=== PATIENT | male | born 1985 | race African-American/Black ===

== ENCOUNTER 2019-02-01 05:28 | Inpatient (IN) | payer BC ==
[2019-02-01] VITALS (11 sets, daily range): BP systolic 119–188; BP diastolic 70–101
[~2019-02-01] VITALS: Ht 182.9 cm; Wt 119.7 kg
[2019-02-01] MEDS ORDERED: KETAMINE HCL 500 MG/10 ML VIAL. ONE (05:37)
--- NOTE | 2019-02-01 06:07 | PHYS DOC ---
Adult General Chief Complaint Chief Complaint: ANKLE PROBLEM HPI HPI Patient is a 34 year old [f__sex] who presents with [] (BORIS ARRINGTON DO) Review of Systems Review of Systems Constitutional: Denies fever or chills [] Eyes: Denies change in visual acuity, redness, or eye pain [] HENT: Denies nasal congestion or sore throat [] Respiratory: Denies cough or shortness of breath [] Cardiovascular: No additional information not addressed in HPI [] GI: Denies abdominal pain, nausea, vomiting, bloody stools or diarrhea [] : Denies dysuria or hematuria [] Musculoskeletal: Denies back pain or joint pain [] Integument: Denies rash or skin lesions [] Neurologic: Denies headache, focal weakness or sensory changes [] Endocrine: Denies polyuria or polydipsia [] All other systems were reviewed and found to be within normal limits, except as documented in this note. (BORIS ARRINGTON DO) Current Medications Current Medications Current Medications Medications (Trade) Dose Ordered Sig/Erik Start Time Stop Time Status Last Admin Dose Admin Ketamine HCl (Ketamine) 130 mg 1X ONCE 02/01/19 05:45 02/01/19 05:46 UNV Sodium Chloride 1,000 ml @ 1,000 mls/hr 1X ONCE 02/01/19 05:45 02/01/19 06:44 UNV (BORIS ARRINGTON DO) Current Medications Current Medications Medications (Trade) Dose Ordered Sig/Erik Start Time Stop Time Status Last Admin Dose Admin Hydromorphone HCl (Dilaudid) 2 mg 1X ONCE 02/01/19 07:00 02/01/19 07:01 DC 02/01/19 06:46 2 MG Ketamine HCl (Ketamine) 130 mg 1X ONCE 02/01/19 07:00 02/01/19 07:01 DC Ondansetron HCl (Zofran) 4 mg 1X ONCE 02/01/19 07:00 02/01/19 07:01 DC 02/01/19 06:45 4 MG Sodium Chloride 1,000 ml @ 1,000 mls/hr 1X ONCE 02/01/19 07:00 02/01/19 07:59 02/01/19 06:47 1,000 MLS/HR (CECILLE FARRELL MD) Allergies Allergies Allergies Coded Allergies Type Severity Reaction Last Updated Verified No Known Drug Allergies 02/01/19 No (CECILLE FARRELL MD) Physical Exam Physical Exam Constitutional: Well developed, well nourished, no acute distress, non-toxic appearance. [] HENT: Normocephalic, atraumatic, bilateral external ears normal, oropharynx moist, no oral exudates, nose normal. [] Eyes: PERRLA, EOMI, conjunctiva normal, no discharge. [] Neck: Normal range of motion, no tenderness, supple, no stridor. [] Cardiovascular:Heart rate regular rhythm, no murmur [] Lungs & Thorax: Bilateral breath sounds clear to auscultation [] Abdomen: Bowel sounds normal, soft, no tenderness, no masses, no pulsatile masses. [] Skin: Warm, dry, no erythema, no rash. [] Back: No tenderness, no CVA tenderness. [] Extremities: No tenderness, no cyanosis, no clubbing, ROM intact, no edema. [] Neurologic: Alert and oriented X 3, normal motor function, normal sensory function, no focal deficits noted. [] Psychologic: Affect normal, judgement normal, mood normal. [] (BORIS ARRINGTON DO) Current Patient Data Vital Signs Vital Signs Date Time Temp Pulse Resp B/P (MAP) Pulse Ox O2 Delivery O2 Flow Rate FiO2 02/01/19 06:46 20 Room Air 02/01/19 05:53 98.6 73 142/70 2.0 99.7 118 15.0 111 15.0 02/01/19 05:30 99 (CECILLE FARRELL MD) EKG EKG [] (BORIS ARRINGTON DO) Radiology/Procedures Radiology/Procedures [] (BORIS ARRINGTON DO) Radiology/Procedures [address] [place], [place] [id number] IMAGING REPORT Signed PATIENT: CARMINA ARMENTA ACCOUNT: [id number] : 1985 LOCATION: ER AGE: 34 SEX: M EXAM STATUS: DEP ER ORD. PHYSICIAN: BORIS ARRINGTON DO REASON: trauma PROCEDURE: ANKLE RIGHT 3V Right ankle x-rays 3 views HISTORY: Right ankle trauma. FINDINGS: There is placement of external casting. There is acute traumatic comminuted fracture of the tibial plafond and medial malleolus with distraction of the tibial plafond lateral which is also dislocated from the talus. Fracture involves the articular cortex of the medial tibial plafond. On the lateral view only there is a angular bone-like density projecting across the calcaneus tuberosity raising the possibility of a fracture fragment of the calcaneus. Os peroneus. IMPRESSION: Fracture and dislocation as described above. Electronically signed by: Radha Lombardi MD (02/01/2019 7:28 AM) [facility] DICTATED and SIGNED BY: RADHA LOMBARDI MD DATE: 02/01/19727 (CECILLE FARRELL MD) Course & Med Decision Making Course & Med Decision Making Pertinent Labs and Imaging studies reviewed. (See chart for details) [Procedure: Procedural sedation/fracture dislocation reduction right ankle Patient presented with traumatic right ankle injury. On initial evaluation the ankle was cool and dusky with a diminished dorsalis pedis pulse and no palpable posterior tibial pulse. An IV was placed, consent was appropriately obtained and the patient was given 1 mg/kg of ketamine. There was significant difficulty reducing the ankle even after excellent sedation. I felt as if the ankle reduced and then the minute traction was relaxed the ankle dislocated again. The patient was in much better anatomical position and splint was applied. After splinting Refill was less than [address] Walker to fully evaluate the patient after his ankle was reduced. Prior to any pain medication the patient did state that he had no other injuries and no other pain.] (BORIS ARRINGTON DO) Course & Med Decision Making Evaluation of patient in ER showed 33-year-old male patient who had injury to right ankle and reduction of dislocation by Dr. Arrington prior to my arrival. Postreduction x-ray showed a comminuted fracture of distal tibia with dislocation. Splint was already was placed with good cap refill. On-call orthopedic physician Dr Brian was consulted at 700 and plans to take patient to operating room for surgical treatment. Patient had blood pressure of 180/100s and stated he was diagnosed with hypertension but doesn't take blood pressure medication. Patient requiring admission for further evaluation and treatment. Discussed with Dr. Diego who is in agreement with admission. Discussed findings and plan with patient and family, who acknowledge understanding and agreement. (CECILLE FARRELL MD) Dragon Disclaimer Dragon Disclaimer This electronic medical record was generated, in whole or in part, using a voice recognition dictation system. (BORIS ARRINGTON DO) Departure Departure Impression: Primary Impression: Closed fracture dislocation of right ankle joint Additional Impression: Uncontrolled hypertension Disposition: ADMITTED INPATIENT (At 0707) Admitting Physician: MARIPOSA (Dr Diego accepted the admission at 0706.) (CECILLE FARRELL MD) Condition: IMPROVED Referrals: ISRRAEL POWERS (PCP) Problem Qualifiers Primary Impression: Closed fracture dislocation of right ankle joint Encounter type: initial encounter Qualified Codes: S82.891A - Other fracture of right lower leg, initial encounter for closed fracture BORIS ARRINGTON DO Feb 01, 2019 06:07 CECILLE FARRELL MD Feb 01, 2019 07:07
[2019-02-01] MEDS ORDERED: HYDROmorphone 2 MG/ML VIAL IV ONE (07:00)
[2019-02-01] MEDS ORDERED: IV NORMAL SALINE 1000ML BAG 1,000 ML IV ONE (07:00)
[2019-02-01] MEDS ORDERED: KETAMINE HCL IN NACL, ISO-OSM 50 MG/5 ML SYRINGE IV ONE (07:00)
[2019-02-01] MEDS ORDERED: ONDANSETRON PF 4 MG/2 ML VIAL. IV ONE (07:00)
[2019-02-01] MEDS: IV NORMAL SALINE 1000ML BAG 1,000 ML IV SCH ×4 (07:08→20:28)
[2019-02-01 07:31] LABS: BASO # 0.1 x10^3/uL (0.0-0.2); BASO % 0 % (0-3); EOS # 0.1 x10^3/uL (0.0-0.7); EOS % 1 % (0-3); HEMATOCRIT 44.2 % (39.0-53.0); LYMPH # 2.3 x10^3/uL (1.0-4.8); LYMPH % 11 % (24-48); MEAN CORPUSCULAR HEMOGLOBIN 31 pg (25-35); MEAN CORPUSCULAR HGB CONC 34 g/dL (31-37); MEAN CORPUSCULAR VOLUME 93 fL (79-100); MONO # 1.2 x10^3/uL (0.0-1.1); MONO % 6 % (0-9); NEUT # 16.7 x10^3uL (1.8-7.7); NEUT % 82 % (31-73); PLATELET COUNT 274 x10^3/uL (140-400); RED BLOOD COUNT 4.77 x10^6/uL (4.30-5.70); WHITE BLOOD COUNT 20.4 x10^3/uL (4.0-11.0)
--- NOTE | 2019-02-01 07:31 | RAD ---
Right ankle x-rays 3 views HISTORY: Right ankle trauma. FINDINGS: There is placement of external casting. There is acute traumatic comminuted fracture of the tibial plafond and medial malleolus with distraction of the tibial plafond lateral which is also dislocated from the talus. Fracture involves the articular cortex of the medial tibial plafond. On the lateral view only there is a angular bone-like density projecting across the calcaneus tuberosity raising the possibility of a fracture fragment of the calcaneus. Os peroneus. IMPRESSION: Fracture and dislocation as described above. Electronically signed by: Rudolph Lombardi MD (02/01/2019 7:28 AM) [facility]
[2019-02-01 07:45] LABS: CALCIUM 8.7 mg/dL (8.5-10.1); GFR 104.1; POTASSIUM 3.9 mmol/L (3.5-5.1)
[2019-02-01 07:50] LABS: ALBUMIN 4.1 g/dL (3.4-5.0); ALBUMIN/GLOBULIN RATIO 1.3 (1.0-1.7); TOTAL BILIRUBIN 0.7 mg/dL (0.2-1.0); TOTAL PROTEIN 7.3 g/dL (6.4-8.2)
[2019-02-01] MEDS ORDERED: fentaNYL PF VIAL 100 MCG/2 ML VIAL IV PRN ×6 (08:15→14:00)
[2019-02-01] MEDS ORDERED: ACETAMINOPHEN/CODEINE 300/30MG TABLET. PO PRN (08:15)
[2019-02-01] MEDS ORDERED: ONDANSETRON PF 4 MG/2 ML VIAL. IV PRN ×4 (08:15→14:00)
[2019-02-01] MEDS ORDERED: KETOROLAC 30 MG/ML VIAL. IV PRN (08:15)
[2019-02-01] MEDS ORDERED: ACETAMINOPHEN 500 MG TABLET PO PRN (08:15)
[2019-02-01] MEDS ORDERED: BUPIVACAINE-EPI 0.25%-1:200000 MPF 30 ML VIAL. ONE (08:32)
[2019-02-01] MEDS ORDERED: IV RINGERS,LACTATED 1000ML 1,000 ML IV SCH ×2 (08:49)
[2019-02-01] MEDS ORDERED: ceFAZolin SODIUM 3 GM in IV DEXTROSE 5% 100ML 100 ML IV PRN (09:00)
[2019-02-01] MEDS ORDERED: HYDROmorphone 2 MG/ML VIAL IV PRN ×2 (09:00)
[2019-02-01] MEDS ORDERED: PROCHLORPERAZINE 10 MG/2 ML VIAL. IV PRN ×2 (09:00)
[2019-02-01] MEDS ORDERED: MORPHINE SULFATE 2 MG/ML VIAL. IV PRN ×2 (09:00→14:00)
[2019-02-01] MEDS ORDERED: LIDOCAINE 1% PF 2 ML VIAL. ID PRN ×2 (09:00)
[2019-02-01] MEDS ORDERED: fentaNYL PF VIAL 100 MCG/2 ML VIAL ONE (09:02)
[2019-02-01] MEDS ORDERED: PROPOFOL 20 ML IV ONE (09:02)
[2019-02-01] MEDS ORDERED: LIDOCAINE 2% PF 5 ML VIAL. ONE (09:02)
[2019-02-01] MEDS ORDERED: MORPHINE SULFATE 4 MG/ML VIAL. IV PRN ×2 (10:00→14:00)
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
[2019-02-01] MEDS ORDERED: SEVOFLURANE 31 TO 60 MINUTES. IH ONE (10:28)
[2019-02-01] MEDS ORDERED: DEXAMETHASONE SOD PHOS 4 MG/ML VIAL ONE (10:28)
[2019-02-01] MEDS ORDERED: ONDANSETRON PF 4 MG/2 ML VIAL. ONE (10:40)
[2019-02-01] MEDS: MORPHINE SULFATE 2 MG/ML VIAL. IV PRN ×2 (11:21→11:34)
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
[2019-02-01] MEDS ORDERED: oxyCODONE/APAP 5/325 1 TAB TABLET PO PRN ×2 (14:00→14:15)
[2019-02-01] MEDS ORDERED: POLYETHYLENE GLYCOL 3350 17 GM PACKET. PO PRN (14:00)
[2019-02-01] MEDS ORDERED: oxyCODONE IR 5 MG TABLET PO PRN (14:00)
[2019-02-01] MEDS ORDERED: HYDROcodone/APAP 7.5/325MG 1 TAB TABLET PO PRN (14:00)
[2019-02-01] MEDS ORDERED: DEXTROSE 50% 25 GM / 50ML DISP.SYRIN. IV PRN (14:00)
[2019-02-01] MEDS: HYDROcodone/APAP 7.5/325MG 1 TAB TABLET PO PRN ×2 (16:25→22:15)
[2019-02-01] MEDS: IV 1/2 NORMAL SALINE 1,000 ML IV SCH (16:30)
[2019-02-01] MEDS: ceFAZolin SODIUM 3 GM in IV DEXTROSE 5% 100ML 100 ML IV SCH ×2 (16:35→22:14)
[2019-02-01] MEDS: KETOROLAC 30 MG/ML VIAL. IV SCH (18:00)
[2019-02-02] MEDS: KETOROLAC 30 MG/ML VIAL. IV SCH ×2 (00:33→06:30)
[2019-02-02 03:00] VITALS: BP 136/82
[2019-02-02] MEDS: IV NORMAL SALINE 1000ML BAG 1,000 ML IV SCH (03:08)
[2019-02-02] MEDS: IV 1/2 NORMAL SALINE 1,000 ML IV SCH (03:16)
[2019-02-02] MEDS: ceFAZolin SODIUM 3 GM in IV DEXTROSE 5% 100ML 100 ML IV SCH (04:00)
[2019-02-02] MEDS ORDERED: MAGNESIUM HYDROXIDE 2,400 MG/30 ML ORAL.SUSP. PO PRN (06:00)
[2019-02-02 07:00] VITALS: BP 141/75
[2019-02-02] MEDS: MULTIVITAMIN with MINERAL TABLET. PO SCH (07:57)
[2019-02-02] MEDS: ASPIRIN 325 MG TABLET PO SCH (07:57)
[2019-02-02] MEDS: SENNOSIDES/DOCUSATE 8.6/50MG TABLET. PO SCH (07:57)
[2019-02-02] MEDS: CHOLECALCIFEROL (VITAMIN D3) 1,000 UNIT TABLET PO SCH (07:57)
[2019-02-02] MEDS: HYDROcodone/APAP 7.5/325MG 1 TAB TABLET PO PRN ×3 (07:59→20:47)
--- NOTE | 2019-02-02 09:26 | PDOC ---
PROGRESS NOTES Chief Complaint Chief Complaint Right ankle fracture s/p OR and now with external fixators (02/01/19( Trauma Obesity, BMI 36 History of Present Illness History of Present Illness Has external fixators right leg-he asked me if he goes home with it He asks me when he can discharge So far eating well but has not ambulated yet post op Plan: PT OT I did tell him that most likely that he will go home with external fixators He is agreeable to rehabilitation if needed We'll consult social research assistant pending PT OT eval Vitamin D level still pending Vitals Vitals Vital Signs Date Time Temp Pulse Resp B/P (MAP) Pulse Ox O2 Delivery O2 Flow Rate FiO2 02/02/19 07:59 Room Air 02/02/19 07:00 98.0 77 22 141/75 (97) 100 98.0 02/02/19 03:00 2.0 Physical Exam General: Alert, mild distress Heart: Regular rate, Normal S1, Normal S2 Lungs: Clear Abdomen: Normal bowel sounds, Soft Extremities: Other (the ankle is splinted. He has decreased light touch sensation of the toes. The pulse is palpable and I used a Doppler to confirm triphasic dorsalis pedis pulse. Decreased active range of motion, really just a flicker of toe dorsiflexion and plantarflexion. The ankle appears malaligned and partially dislocated into varus. There is significant soft tissue swelling but no reported break in the skin.) Skin: No rashes, No breakdown, No significant lesion Review of Systems Review of Systems Right leg soreness, the rest of ROS 14 point negative Assessment and Plan Assessmemt and Plan Problems Medical Problems: (1) Closed fracture dislocation of right ankle joint Status: Acute (2) Closed fracture dislocation of right ankle joint Status: Acute (3) Uncontrolled hypertension Status: Acute Comment Review of Relevant I have reviewed the following items carl (where applicable) has been applied. Labs Laboratory Tests Test 02/01/19 07:20 White Blood Count 20.4 x10^3/uL (4.0-11.0) Red Blood Count 4.77 x10^6/uL (4.30-5.70) Hemoglobin 15.0 g/dL (13.0-17.5) Hematocrit 44.2 % (39.0-53.0) Mean Corpuscular Volume 93 fL (79-100) Mean Corpuscular Hemoglobin 31 pg (25-35) Mean Corpuscular Hemoglobin Concent 34 g/dL (31-37) Red Cell Distribution Width 13.0 % (11.5-14.5) Platelet Count 274 x10^3/uL (140-400) Neutrophils (%) (Auto) 82 % (31-73) Lymphocytes (%) (Auto) 11 % (24-48) Monocytes (%) (Auto) 6 % (0-9) Eosinophils (%) (Auto) 1 % (0-3) Basophils (%) (Auto) 0 % (0-3) Neutrophils # (Auto) 16.7 x10^3uL (1.8-7.7) Lymphocytes # (Auto) 2.3 x10^3/uL (1.0-4.8) Monocytes # (Auto) 1.2 x10^3/uL (0.0-1.1) Eosinophils # (Auto) 0.1 x10^3/uL (0.0-0.7) Basophils # (Auto) 0.1 x10^3/uL (0.0-0.2) Prothrombin Time 13.0 SEC (11.7-14.0) Prothromb Time International Ratio 1.0 (0.8-1.1) Sodium Level 138 mmol/L (136-145) Potassium Level 3.9 mmol/L (3.5-5.1) Chloride Level 102 mmol/L (98-107) Carbon Dioxide Level 26 mmol/L (21-32) Anion Gap 10 (6-14) Blood Urea Nitrogen 14 mg/dL (8-26) Creatinine 1.0 mg/dL (0.7-1.3) Estimated GFR (Cockcroft-Gault) 104.1 BUN/Creatinine Ratio 14 (6-20) Glucose Level 168 mg/dL (70-99) Calcium Level 8.7 mg/dL (8.5-10.1) Total Bilirubin 0.7 mg/dL (0.2-1.0) Aspartate Amino Transf (AST/SGOT) 20 U/L (15-37) Alanine Aminotransferase (ALT/SGPT) 26 U/L (16-63) Alkaline Phosphatase 66 U/L (46-116) Total Protein 7.3 g/dL (6.4-8.2) Albumin 4.1 g/dL (3.4-5.0) Albumin/Globulin Ratio 1.3 (1.0-1.7) Medications Current Medications Ketamine HCl 500 mg STK-MED ONCE .ROUTE ; Start 02/01/19 at 05:37; Stop 02/01/19 at 05:38; Status DC Ketamine HCl (Ketamine) 130 mg 1X ONCE IV ; Start 02/01/19 at 07:00; Stop 02/01/19 at 07:01; Status DC Sodium Chloride 1,000 ml @ 1,000 mls/hr 1X ONCE IV Last administered on 02/01/19at 06:47; Start 02/01/19 at 07:00; Stop 02/01/19 at 07:59; Status DC Hydromorphone HCl (Dilaudid) 2 mg 1X ONCE IV Last administered on 02/01/19at 06:46; Start 02/01/19 at 07:00; Stop 02/01/19 at 07:01; Status DC Ondansetron HCl (Zofran) 4 mg 1X ONCE IV Last administered on 02/01/19at 06:45; Start 02/01/19 at 07:00; Stop 02/01/19 at 07:01; Status DC Sodium Chloride 1,000 ml @ 150 mls/hr Q6H40M IV ; Start 02/01/19 at 07:08; Stop 02/02/19 at 07:07; Status DC Ketorolac Tromethamine (Toradol 30mg Vial) 30 mg PRN Q6HRS PRN IV MODERATE PAIN; Start 02/01/19 at 08:15; Stop 02/06/19 at 08:14; Status Cancel Fentanyl Citrate (Fentanyl 2ml Vial) 50 mcg PRN Q2HR PRN IV SEVERE PAIN Last administered on 02/01/19at 08:33; Start 02/01/19 at 08:15; Stop 02/01/19 at 14:15; Status DC Acetaminophen (Tylenol) 500 mg PRN Q6HRS PRN PO MILD PAIN / TEMP; Start 02/01/19 at 08:15 Acetaminophen/ Codeine Phosphate (Tylenol #3) 1 tab PRN Q6HRS PRN PO MODERATE PAIN; Start 02/01/19 at 08:15 Ondansetron HCl (Zofran) 4 mg PRN Q6HRS PRN IV NAUSEA/VOMITING; Start 02/01/19 at 08:15; Stop 02/01/19 at 14:16; Status DC Ondansetron HCl (Zofran) 4 mg PRN Q6HRS PRN IV NAUSEA/VOMITING; Start 02/01/19 at 09:00; Stop 02/02/19 at 08:59; Status UNV Fentanyl Citrate (Fentanyl 2ml Vial) 25 mcg PRN Q5MIN PRN IV MILD PAIN 1-3; Start 02/01/19 at 09:00; Stop 02/02/19 at 08:59; Status UNV Fentanyl Citrate (Fentanyl 2ml Vial) 50 mcg PRN Q5MIN PRN IV MODERATE TO SEVERE PAIN; Start 02/01/19 at 09:00; Stop 02/02/19 at 08:59; Status UNV Morphine Sulfate (Morphine Sulfate) 1 mg PRN Q10MIN PRN IV SEVERE PAIN 7-10; Start 02/01/19 at 09:00; Stop 02/02/19 at 08:59; Status UNV Ringer's Solution 1,000 ml @ 30 mls/hr Q24H IV ; Start 02/01/19 at 08:49; Stop 02/01/19 at 20:48; Status UNV Lidocaine HCl (Xylocaine-Mpf 1% 2ml Vial) 2 ml PRN 1X PRN ID PRIOR TO IV START; Start 02/01/19 at 09:00; Stop 02/02/19 at 08:59; Status UNV Hydromorphone HCl (Dilaudid) 0.5 mg PRN Q10MIN PRN IV SEV PAIN, Second choice; Start 02/01/19 at 09:00; Stop 02/02/19 at 08:59; Status UNV Prochlorperazine Edisylate (Compazine) 5 mg PACU PRN PRN IV NAUSEA, MRX1; Start 02/01/19 at 09:00; Stop 02/02/19 at 08:59; Status UNV Ondansetron HCl (Zofran) 4 mg PRN Q6HRS PRN IV NAUSEA/VOMITING; Start 02/01/19 at 09:00; Stop 02/01/19 at 14:16; Status DC Fentanyl Citrate (Fentanyl 2ml Vial) 25 mcg PRN Q5MIN PRN IV MILD PAIN 1-3; Start 02/01/19 at 09:00; Stop 02/01/19 at 14:15; Status DC Fentanyl Citrate (Fentanyl 2ml Vial) 50 mcg PRN Q5MIN PRN IV MODERATE TO SEVERE PAIN; Start 02/01/19 at 09:00; Stop 02/01/19 at 14:15; Status DC Morphine Sulfate (Morphine Sulfate) 1 mg PRN Q10MIN PRN IV SEVERE PAIN 7-10 Last administered on 02/01/19at 11:34; Start 02/01/19 at 09:00; Stop 02/01/19 at 14:15; Status DC Ringer's Solution 1,000 ml @ 30 mls/hr Q24H IV ; Start 02/01/19 at 08:49; Stop 02/01/19 at 20:48; Status DC Lidocaine HCl (Xylocaine-Mpf 1% 2ml Vial) 2 ml PRN 1X PRN ID PRIOR TO IV START; Start 02/01/19 at 09:00; Stop 02/01/19 at 18:00; Status DC Hydromorphone HCl (Dilaudid) 0.5 mg PRN Q10MIN PRN IV SEV PAIN, Second choice; Start 02/01/19 at 09:00; Stop 02/01/19 at 18:00; Status DC Prochlorperazine Edisylate (Compazine) 5 mg PACU PRN PRN IV NAUSEA, MRX1 Last administered on 02/01/19at 11:20; Start 02/01/19 at 09:00; Stop 02/01/19 at 18:00; Status DC Propofol 20 ml @ As Directed STK-MED ONCE IV ; Start 02/01/19 at 09:02; Stop 02/01/19 at 09:03; Status DC Lidocaine HCl (Lidocaine Pf 2% Vial) 5 ml STK-MED ONCE .ROUTE ; Start 02/01/19 at 09:02; Stop 02/01/19 at 09:03; Status DC Fentanyl Citrate (Fentanyl 2ml Vial) 100 mcg STK-MED ONCE .ROUTE ; Start 02/01/19 at 09:02; Stop 02/01/19 at 09:03; Status DC Cefazolin Sodium 3 gm/Dextrose 100 ml @ 200 mls/hr 1X PREOP PRN IV PRIOR TO PROCEDURE Last administered on 02/01/19at 10:08; Start 02/01/19 at 09:00; Stop 02/01/19 at 16:00; Status DC Bupivacaine HCl/ Epinephrine Bitart (Sensorcaine-Epi 0.25%-1:[id number] Mpf) 30 ml STK-MED ONCE .ROUTE ; Start 02/01/19 at 08:32; Stop 02/01/19 at 09:33; Status DC Morphine Sulfate (Morphine Sulfate) 4 mg PRN Q2HR PRN IV MODERATE PAIN Last administered on 02/01/19at 12:57; Start 02/01/19 at 10:00; Stop 02/01/19 at 14:15; Status DC Dexamethasone Sodium Phosphate (Decadron) 4 mg STK-MED ONCE .ROUTE ; Start 02/01/19 at 10:28; Stop 02/01/19 at 10:29; Status DC Sevoflurane (Ultane) 30 ml STK-MED ONCE IH ; Start 02/01/19 at 10:28; Stop 02/01/19 at 10:29; Status DC Ondansetron HCl (Zofran) 4 mg STK-MED ONCE .ROUTE ; Start 02/01/19 at 10:40; Stop 02/01/19 at 10:41; Status DC Oxycodone HCl (Roxicodone) 5 mg PRN Q3HRS PRN PO PAIN SEE COMMENT; Start 02/01/19 at 14:00 Morphine Sulfate (Morphine Sulfate) 2 mg PRN Q1HR PRN IV PAIN SEE COMMENT; Start 02/01/19 at 14:00 Fentanyl Citrate (Fentanyl 2ml Vial) 25 mcg PRN Q1HR PRN IV PAIN SEE COMMENT; Start 02/01/19 at 14:00 Multivitamins (Thera M Plus) 1 tab DAILY PO Last administered on 02/02/19at 07:57; Start 02/02/19 at 09:00 Senna/Docusate Sodium (Senna Plus) 1 tab DAILY PO Last administered on 02/02/19at 07:57; Start 02/02/19 at 09:00 Polyethylene Glycol (miraLAX PACKET) 17 gm PRN DAILY PRN PO CONSTIPATION 1ST CHOICE; Start 02/01/19 at 14:00 Vitamin D (Vitamin D3) 1,000 unit DAILY PO Last administered on 02/02/19at 07:57; Start 02/02/19 at 09:00 Sodium Chloride 1,000 ml @ 75 mls/hr [id number] IV Last administered on 02/01/19at 16:30; Start 02/01/19 at 13:56; Stop 02/02/19 at 07:58; Status DC Ondansetron HCl (Zofran) 4 mg PRN Q4HRS PRN IV NAUSEA/VOMITING 1ST CHOICE; Start 02/01/19 at 14:00 Aspirin (Lizeth Aspirin) 325 mg [id number] PO Last administered on 02/02/19at 07:57; Start 02/02/19 at 08:00 Magnesium Hydroxide (Milk Of Magnesia) 2,400 mg 1X PRN PRN PO CONSTIPATION SEE COMMENT; Start 02/02/19 at 06:00; Stop 02/03/19 at 05:59 Bisacodyl (Dulcolax Supp) 10 mg 1X PRN PRN OR CONSTIPATION; Start 02/02/19 at 16:00; Stop 02/03/19 at 15:59 Acetaminophen/ Hydrocodone Bitart (Lortab 7.5/325) 1 tab PRN Q4HRS PRN PO PAIN SEE COMMENT; Start 02/01/19 at 14:00 Morphine Sulfate (Morphine Sulfate) 4 mg PRN Q2HR PRN IV PAIN SEE COMMENT Last administered on 02/01/19at 16:33; Start 02/01/19 at 14:00 Acetaminophen/ Hydrocodone Bitart (Lortab 7.5/325) 2 tab PRN Q4HRS PRN PO PAIN SEE COMMENT Last administered on 02/02/19at 07:59; Start 02/01/19 at 14:00 Dextrose (Dextrose 50%-Water Syringe) 12.5 gm PRN Q15MIN PRN IV SEE COMMENTS; Start 02/01/19 at 14:00 Cefazolin Sodium 3 gm/Dextrose 100 ml @ 200 mls/hr Q6H IV Last administered on 02/02/19at 04:00; Start 02/01/19 at 16:00; Stop 02/02/19 at 04:29; Status DC Oxycodone/ Acetaminophen (Percocet 5/325) 1 tab PRN Q4HRS PRN PO PAIN MILD TO MOD; Start 02/01/19 at 14:00 Ketorolac Tromethamine (Toradol 30mg Vial) 30 mg Q6HRS IV Last administered on 02/02/19at 06:30; Start 02/01/19 at 18:00; Stop 02/02/19 at 06:01; Status DC Oxycodone/ Acetaminophen (Percocet 5/325) 2 tab PRN Q4HRS PRN PO PAIN SEVERE; Start 02/01/19 at 14:15 Vitals/I & O Vital Sign - Last 24 Hours 02/01/19 02/01/19 02/01/19 02/01/19 09:40 10:51 11:06 11:06 Temp 98.9 98.9 98.3 98.9 98.9 98.3 Pulse 94 93 86 Resp 18 20 B/P (MAP) 170/84 190/87 146/80 Pulse Ox 100 100 99 O2 Delivery Nasal Cannula Nasal Cannula Simple Mask Mask O2 Flow Rate 3.0 3.0 5 5 02/01/19 02/01/19 02/01/19 02/01/19 11:21 11:21 11:34 11:36 Temp 98.3 98.3 98.3 98.3 Pulse 86 94 Resp 20 12 B/P (MAP) 174/82 193/88 Pulse Ox 100 100 100 100 O2 Delivery Simple Mask Simple Mask Nasal Cannula Room Air O2 Flow Rate 5.0 5.0 3.0 3.0 02/01/19 02/01/19 02/01/19 02/01/19 12:18 12:30 12:45 12:57 Temp 98.9 98.9 Pulse 107 96 100 Resp 18 18 B/P (MAP) 173/100 (124) 188/101 (130) 154/89 (110) Pulse Ox 100 100 100 100 O2 Delivery Nasal Cannula Nasal Cannula Nasal Cannula Room Air O2 Flow Rate 2.0 2.0 2.0 3.0 02/01/19 02/01/19 02/01/19 02/01/19 13:00 13:15 13:45 13:56 Pulse 102 95 87 Resp 18 B/P (MAP) 160/92 (114) 149/89 (109) 138/83 (101) Pulse Ox 100 99 99 100 O2 Delivery Nasal Cannula Nasal Cannula Nasal Cannula Room Air O2 Flow Rate 2.0 2.0 2.0 3.0 02/01/19 02/01/19 02/01/19 02/01/19 14:15 16:25 16:33 17:15 Pulse 84 Resp 18 B/P (MAP) 139/78 (98) Pulse Ox 99 99 99 99 O2 Delivery Nasal Cannula Nasal Cannula Room Air Nasal Cannula O2 Flow Rate 2.0 2.0 2.0 2.0 02/01/19 02/01/19 02/01/19 02/01/19 17:15 19:00 19:45 22:15 Temp 98.0 98.0 Pulse 68 Resp 16 B/P (MAP) 119/85 (96) Pulse Ox 99 97 O2 Delivery Nasal Cannula Room Air Room Air O2 Flow Rate 2.0 2.0 02/01/19 02/02/19 02/02/19 02/02/19 23:00 00:30 03:00 07:00 Temp 98.5 97.9 98.0 98.5 97.9 98.0 Pulse 94 103 77 Resp 18 16 18 22 B/P (MAP) 130/77 (94) 136/82 (100) 141/75 (97) Pulse Ox 96 98 100 O2 Delivery Nasal Cannula Room Air Nasal Cannula Room Air O2 Flow Rate 2.0 2.0 02/02/19 07:59 O2 Delivery Room Air Intake and Output 02/01/19 02/01/19 02/02/19 15:00 23:00 07:00 Intake Total 1400 ml 120 ml Output Total 0 ml 800 ml Balance 1400 ml 120 ml -800 ml KEYANNA CLEMONS MD Feb 02, 2019 09:26
[2019-02-02 11:00] VITALS: BP 148/78
[2019-02-02 11:10] LABS: BASO % 0 % (0-3); EOS % 0 % (0-3); HEMOGLOBIN 15.9 g/dL (13.0-17.5); LYMPH # 2.5 x10^3/uL (1.0-4.8); LYMPH % 11 % (24-48); MEAN CORPUSCULAR HEMOGLOBIN 32 pg (25-35); MEAN CORPUSCULAR HGB CONC 34 g/dL (31-37); MEAN CORPUSCULAR VOLUME 94 fL (79-100); MONO # 1.5 x10^3/uL (0.0-1.1); MONO % 6 % (0-9); NEUT # 18.9 x10^3uL (1.8-7.7); NEUT % 83 % (31-73); PLATELET COUNT 291 x10^3/uL (140-400); RED BLOOD COUNT 5.02 x10^6/uL (4.30-5.70); RED CELL DISTRIBUTION WIDTH 12.8 % (11.5-14.5); WHITE BLOOD COUNT 22.9 x10^3/uL (4.0-11.0)
[2019-02-02 11:20] LABS: CREATININE 1.1 mg/dL (0.7-1.3); GFR 93.3; POTASSIUM 3.6 mmol/L (3.5-5.1)
[2019-02-02 13:09] LABS: % BANDS 1 % (0-9); % LYMPHS 15 % (24-48); % MONOS 8 % (0-10); % SEGS 76 % (35-66); PLT ESTIMATE ADEQUATE (ADEQUATE)
[2019-02-02 15:00] VITALS: BP 149/80
[2019-02-02] MEDS ORDERED: BISACODYL 10 MG SUPP.RECT. PR PRN (16:00)
[2019-02-02 19:00] VITALS: BP 106/64
[2019-02-02 23:00] VITALS: BP 119/58
[2019-02-03] MEDS: HYDROcodone/APAP 7.5/325MG 1 TAB TABLET PO PRN (02:24)
[2019-02-03 03:00] VITALS: BP 140/70
[2019-02-03 07:00] VITALS: BP 101/65
--- NOTE | 2019-02-03 07:27 | PDOC ---
PROGRESS NOTES Subjective Subjective sensation returning to foot after reduction Objective Vital Signs Vital Signs Date Time Temp Pulse Resp B/P (MAP) Pulse Ox O2 Delivery O2 Flow Rate FiO2 02/03/19 03:30 16 Room Air 02/03/19 03:00 97.6 66 140/70 (93) 98 97.6 02/02/19 14:21 2.0 Physical Exam Pin sites with dried blood. Dressing intact. Calf soft. Foot swollen but acceptable without compartment syndrome. Able to DF toes 1/5. Cap refill WNL. Gross alignment normal, ex-fix is stable and rigid. Labs Laboratory Tests Test 02/02/19 10:15 White Blood Count 22.9 x10^3/uL (4.0-11.0) Red Blood Count 5.02 x10^6/uL (4.30-5.70) Hemoglobin 15.9 g/dL (13.0-17.5) Hematocrit 47.0 % (39.0-53.0) Mean Corpuscular Volume 94 fL (79-100) Mean Corpuscular Hemoglobin 32 pg (25-35) Mean Corpuscular Hemoglobin Concent 34 g/dL (31-37) Red Cell Distribution Width 12.8 % (11.5-14.5) Platelet Count 291 x10^3/uL (140-400) Neutrophils (%) (Auto) 83 % (31-73) Lymphocytes (%) (Auto) 11 % (24-48) Monocytes (%) (Auto) 6 % (0-9) Eosinophils (%) (Auto) 0 % (0-3) Basophils (%) (Auto) 0 % (0-3) Neutrophils # (Auto) 18.9 x10^3uL (1.8-7.7) Lymphocytes # (Auto) 2.5 x10^3/uL (1.0-4.8) Monocytes # (Auto) 1.5 x10^3/uL (0.0-1.1) Eosinophils # (Auto) 0.0 x10^3/uL (0.0-0.7) Basophils # (Auto) 0.0 x10^3/uL (0.0-0.2) Segmented Neutrophils % 76 % (35-66) Band Neutrophils % 1 % (0-9) Lymphocytes % 15 % (24-48) Monocytes % 8 % (0-10) Platelet Estimate Adequate (ADEQUATE) Sodium Level 138 mmol/L (136-145) Potassium Level 3.6 mmol/L (3.5-5.1) Chloride Level 100 mmol/L (98-107) Carbon Dioxide Level 28 mmol/L (21-32) Anion Gap 10 (6-14) Blood Urea Nitrogen 9 mg/dL (8-26) Creatinine 1.1 mg/dL (0.7-1.3) Estimated GFR (Cockcroft-Gault) 93.3 Glucose Level 156 mg/dL (70-99) Calcium Level 9.0 mg/dL (8.5-10.1) Laboratory Tests Test 02/02/19 10:15 White Blood Count 22.9 x10^3/uL (4.0-11.0) Red Blood Count 5.02 x10^6/uL (4.30-5.70) Hemoglobin 15.9 g/dL (13.0-17.5) Hematocrit 47.0 % (39.0-53.0) Mean Corpuscular Volume 94 fL (79-100) Mean Corpuscular Hemoglobin 32 pg (25-35) Mean Corpuscular Hemoglobin Concent 34 g/dL (31-37) Red Cell Distribution Width 12.8 % (11.5-14.5) Platelet Count 291 x10^3/uL (140-400) Neutrophils (%) (Auto) 83 % (31-73) Lymphocytes (%) (Auto) 11 % (24-48) Monocytes (%) (Auto) 6 % (0-9) Eosinophils (%) (Auto) 0 % (0-3) Basophils (%) (Auto) 0 % (0-3) Neutrophils # (Auto) 18.9 x10^3uL (1.8-7.7) Lymphocytes # (Auto) 2.5 x10^3/uL (1.0-4.8) Monocytes # (Auto) 1.5 x10^3/uL (0.0-1.1) Eosinophils # (Auto) 0.0 x10^3/uL (0.0-0.7) Basophils # (Auto) 0.0 x10^3/uL (0.0-0.2) Segmented Neutrophils % 76 % (35-66) Band Neutrophils % 1 % (0-9) Lymphocytes % 15 % (24-48) Monocytes % 8 % (0-10) Platelet Estimate Adequate (ADEQUATE) Sodium Level 138 mmol/L (136-145) Potassium Level 3.6 mmol/L (3.5-5.1) Chloride Level 100 mmol/L (98-107) Carbon Dioxide Level 28 mmol/L (21-32) Anion Gap 10 (6-14) Blood Urea Nitrogen 9 mg/dL (8-26) Creatinine 1.1 mg/dL (0.7-1.3) Estimated GFR (Cockcroft-Gault) 93.3 Glucose Level 156 mg/dL (70-99) Calcium Level 9.0 mg/dL (8.5-10.1) Assessment Assessment POD #2 after ex-fix for comminuted tibial pilon fracture Plan Plan of Jail today NWB Pin care daily - discussed with patient and RN, hydrogen peroxide/saline 50/50 mixture using cotton swabs, daily after showers. May shower daily and get ex-fix wet. Continue ASA daily for DVT prophylaxis for 30 days. Percocet for pain Follow up with traumatologist in 1 week for definitive care, (likely plates and screws in 2-3 weeks, after CT scan). Does not need to F/U with ky ISRRAEL WASHINGTON MD Feb 03, 2019 07:27
[2019-02-03] MEDS ORDERED: ASPI325T8 PO (07:34)
[2019-02-03] MEDS ORDERED: CHOL10002 PO (07:34)
[2019-02-03] MEDS ORDERED: OXYC1TAB15 PO (07:34)
[2019-02-03] MEDS: SENNOSIDES/DOCUSATE 8.6/50MG TABLET. PO SCH (08:10)
[2019-02-03] MEDS: ASPIRIN 325 MG TABLET PO SCH (08:10)
[2019-02-03] MEDS: CHOLECALCIFEROL (VITAMIN D3) 1,000 UNIT TABLET PO SCH (08:10)
[2019-02-03] MEDS: MULTIVITAMIN with MINERAL TABLET. PO SCH (08:10)
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
[2019-02-03 11:00] VITALS: BP 122/67
[2019-02-03] MEDS ORDERED: MULT1TAB90 PO (12:08)
[2019-02-03] MEDS ORDERED: POLY17PO28 PO (12:08)
[2019-02-03] MEDS ORDERED: HYDR-2765 PO (12:08)
--- NOTE | 2019-02-03 12:10 | DISCH ---
DISCHARGE INSTRUCTIONS Condition on Discharge Condition on Discharge: Stable Activity After Discharge Activity Instructions for Disc: Activity as tolerated Lifting Instructions after Dis: No heavy lifting, No pulling or pushing Driving Instructions after Dis: Do not drive Diet after Discharge Diet after Discharge: Regular Checks after Discharge Checks after discharge: Check blood press - daily Contacting the DR. after DC Call your doctor for: If your condition worsens Treatment/Equipment after DC Adaptive Equipment Issued: Front wheeled walker STEVEN BE MD Feb 03, 2019 12:10
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
[2019-02-03 15:00] VITALS: BP 139/94
--- NOTE | 2019-02-03 17:22 | NUR ---
Discharge instructions and belongings reviewed with patient verbalized understanding. Patient was escorted out via wheelchair with this RN and Parker LIMA accompanied by his .
== END 2019-02-03 17:25 | disposition home or self-care (01) | DRG 493 ==
LOC: ER 05:28 → 4 NORTH 06:35 → ER 07:24
PROVIDERS: ADMIT Internal Medicine; ATTEND Internal Medicine
PROC: 2W3SX1Z Immobilization of Right Foot using Splint (ICD-10-PCS; 2019-02-01)
PROC: 0QSG35Z Reposition Right Tibia with External Fixation Device, Percutaneous Approach (ICD-10-PCS; principal; 2019-02-01 09:00)
DX: S82.871A Displaced pilon fracture of right tibia, initial encounter for closed fracture (principal); R65.10 Systemic inflammatory response syndrome (SIRS) of non-infectious origin without acute organ dysfunction; I10 Essential (primary) hypertension; E66.9 Obesity, unspecified; F17.200 Nicotine dependence, unspecified, uncomplicated; Y03.0XXA Assault by being hit or run over by motor vehicle, initial encounter; Y92.524 Gas station as the place of occurrence of the external cause; Y93.89 Activity, other specified; Y99.8 Other external cause status; Z68.36 Body mass index [BMI] 36.0-36.9, adult; Z71.6 Tobacco abuse counseling; Z80.1 Family history of malignant neoplasm of trachea, bronchus and lung; Z82.0 Family history of epilepsy and other diseases of the nervous system
CPT/HCPCS: 36415; 73610; 76000; 80048; 80053; 82306; 85007; 85025; 85610; 96361; 96374; 96375; A7015; C1713; J0690; J0780; J1100; J1170; J1885; J2001; J2270; J2405; J2704; J3010; J7030; 97110; 97116; 97530; 97535; 99285-25